=== PATIENT | female | born 1980 | race Caucasian/White ===

== ENCOUNTER 2020-07-06 01:50 | Emergency (ER) | payer BC ==
[~2020-07-06] VITALS: Ht 160 cm; Wt 63.5 kg
[2020-07-06 01:57] VITALS: BP 118/73
--- NOTE | 2020-07-06 01:59 | NUR ---
To ED bed 04
--- NOTE | 2020-07-06 02:00 | NUR ---
39 year old female coming in for c/o rlq abdominal pain that radiates to umbilical region that started 1 week ago. denies n/v/d. denies constipation. denies headache/blurry vision. awaiting MSE. VSS. pmhx: inguinal hernia nka
[2020-07-06 02:10] VITALS: BP 116/71
[2020-07-06 02:15] LABS: APPEARANCE,URINE CLEAR (CLEAR); BILIRUBIN,URINE NEGATIVE (NEGATIVE); BLOOD, URINE NEGATIVE (NEGATIVE); COLOR,URINE YELLOW (YELLOW); LEUKOCYTE ESTERASE ,URINE TRACE (NEGATIVE); NITRITE, URINE POSITIVE (NEGATIVE); UGLUCOSE NEGATIVE (NEGATIVE)
--- NOTE | 2020-07-06 02:22 | NUR ---
Dr. Thrasher at bedside for MSE
[2020-07-06] MEDS ORDERED: cefTRIAXone 1,000 MG in LIDOCAINE MPF 1% 2.1 ML IM ONE (02:25)
[2020-07-06] MEDS ORDERED: KETOROLAC 30 MG/ML VIAL IM ONE (02:25)
[2020-07-06 02:26] LABS: BARBITURATE, URINE NEGATIVE ng/ml (NEG <=200); BENZODIAZEPINE, URINE NEGATIVE ng/mL (NEG <=200); CANNABINOID, URINE POSITIVE ng/mL (NEG <=50); COCAINE, URINE NEGATIVE ng/mL (NEG <=300); OPIATE, URINE NEGATIVE ng/mL (NEG <=2000); PHENCYCLIDINE SCREEN,URINE NEGATIVE ng/mL (NEG <=25)
[2020-07-06 02:27] LABS: RBC,URINE 0-5 /HPF (0-5)
[2020-07-06] MEDS ORDERED: LIDOCAINE MPF 1% 5 ML ONE (02:29)
[2020-07-06] MEDS ORDERED: cefTRIAXone 1,000 MG VIAL ONE (02:29)
--- NOTE | 2020-07-06 02:42 | NUR ---
Patient discharged with v/s stable. Written and verbal after care instructions given and explained. Patient alert, oriented and verbalized understanding of instructions. Ambulatory with steady gait. All questions addressed prior to discharge. ID band removed. Patient advised to follow up with PMD. Rx of motrin and nitrofurantoin given. Patient educated on indication of medication including possible reaction and side effects. Opportunity to ask questions provided and answered.
== END 2020-07-06 02:42 | disposition home or self-care (01) ==
LOC: MED 01:50
DX: N39.0 Urinary tract infection, site not specified (principal)
CPT/HCPCS: 80305; 81001; 81025; 87086; 96372; 99284; J0696; J1885; J2001